=== PATIENT | female | born 1940 | race Caucasian/White ===

== ENCOUNTER 2017-07-29 17:41 | Inpatient (IN) | payer MEDICARE, OTHER ==
[~2017-07-29] VITALS: Ht 144.8 cm; Wt 49.0 kg
[~2017-07-29 17:41] MED LIST: ACET-1600 PO; ATOR40TA78 PO; FERR325T18 PO; FURO20TA3 PO; FURO40TA6 PO; GABA300C10 PO; HYDR-3240 PO; HYDR200T PO; LORA10TA3 PO; LOSA25TA2 PO; LOSA50TA6 PO; MECL-76 PO; NYST5000 PO; OMEP20TA62 PO; POTA20TA91 PO; POTA8CAP PO; TORS10TA4 PO; TRAM50TA2 PO
[2017-07-29] MEDS ORDERED: ASPIRIN 81 MG TABLET CHEW PO ONE (18:00)
[2017-07-29] MEDS ORDERED: ALBU8.5H8 INH (18:07)
[2017-07-29] MEDS ORDERED: ASPIRIN 81 MG TABLET CHEW ONE (18:20)
[2017-07-29 18:44] LABS: HEMOGLOBIN 10.7 g/dL (11.7-16.4); WHITE BLOOD COUNT 7.8 x10^3/uL (3.4-10)
[2017-07-29 18:55] LABS: BLOOD UREA NITROGEN 29 mg/dL (7-18)
[2017-07-29 19:05] LABS: IS PT STATUS REG ER OR PRE ER? YES
[2017-07-29] MEDS ORDERED: FUROSEMIDE 20 MG/2 ML IV ONE (21:30)
[2017-07-29] MEDS ORDERED: ONDANSETRON ODT 4 MG PO PRN (22:00)
[2017-07-29] MEDS ORDERED: TEMAZEPAM 15 MG CAPSULE PO PRN (22:00)
[2017-07-29] MEDS ORDERED: DOCUSATE 100 MG CAPSULE PO PRN (22:00)
[2017-07-29] MEDS: TEMPLATE NON-FORMULARY MED. (Albuterol Sulfate (Proair Hfa) 2 PUFF(S)) INH SCH (22:00)
[2017-07-29] MEDS ORDERED: FUROSEMIDE 20 MG/2 ML ONE (22:04)
[2017-07-29 23:19] VITALS: BP 144/87
[2017-07-29] MEDS: ATORVASTATIN 40 MG TABLET PO SCH (23:55)
[2017-07-29] MEDS: ACETAMINOPHEN 325 MG TABLET PO PRN (23:55)
[2017-07-29] MEDS: HEPARIN 5,000 UNITS/ML, 1ML SQ SCH (23:56)
[2017-07-30 00:10] VITALS: BP 126/76
[2017-07-30] MEDS: TEMPLATE NON-FORMULARY MED. (Albuterol Sulfate (Proair Hfa) 2 PUFF(S)) INH SCH ×4 (01:00→11:00)
[2017-07-30 01:24] LABS: IS PT STATUS REG ER OR PRE ER? NO
[2017-07-30 06:54] LABS: HEMATOCRIT 28.8 % (34.6-47.8); HEMOGLOBIN 9.7 g/dL (11.7-16.4); WHITE BLOOD COUNT 6.9 x10^3/uL (3.4-10)
[2017-07-30 07:06] VITALS: BP 130/72
[2017-07-30 07:06] LABS: BLOOD UREA NITROGEN 36 mg/dL (7-18)
[2017-07-30 07:14] LABS: IS PT STATUS REG ER OR PRE ER? NO
[2017-07-30] MEDS ORDERED: LOSARTAN 25MG TABLET PO SCH (09:00)
[2017-07-30] MEDS: HEPARIN 5,000 UNITS/ML, 1ML SQ SCH ×2 (09:10→16:25)
[2017-07-30] MEDS: LORATADINE 10 MG TABLET PO SCH (09:10)
[2017-07-30] MEDS: HYDROXYCHLOROQUINE 200 MG TABLET PO SCH (09:10)
[2017-07-30] MEDS: FUROSEMIDE 20 MG/2 ML IV SCH (09:10)
[2017-07-30] MEDS: FERROUS SULFATE 325 MG TABLET PO SCH ×2 (09:10→16:25)
[2017-07-30] MEDS ORDERED: ALBUTEROL SULFATE HOMEMEDPO PRN (13:00)
[2017-07-30 13:28] VITALS: BP 130/68
[2017-07-30 19:52] VITALS: BP 131/76
[2017-07-30] MEDS: ATORVASTATIN 40 MG TABLET PO SCH (22:41)
[2017-07-31 02:57] VITALS: BP 134/78
[2017-07-31] MEDS: HEPARIN 5,000 UNITS/ML, 1ML SQ SCH ×3 (06:00→22:00)
[2017-07-31 06:01] LABS: BLOOD UREA NITROGEN 37 mg/dL (7-18)
[2017-07-31 07:39] VITALS: BP 137/74
[2017-07-31] MEDS: HYDROXYCHLOROQUINE 200 MG TABLET PO SCH (08:29)
[2017-07-31] MEDS: FUROSEMIDE 20 MG/2 ML IV SCH (08:29)
[2017-07-31] MEDS: LORATADINE 10 MG TABLET PO SCH (08:30)
[2017-07-31] MEDS: FERROUS SULFATE 325 MG TABLET PO SCH ×2 (08:32→17:53)
[2017-07-31 15:18] VITALS: BP 143/75
[2017-07-31 18:43] VITALS: BP 138/81
[2017-07-31] MEDS: ATORVASTATIN 40 MG TABLET PO SCH (20:35)
[2017-08-01 02:45] VITALS: BP 114/71
[2017-08-01 07:53] VITALS: BP 118/63
[2017-08-01] MEDS: FUROSEMIDE 20 MG/2 ML IV SCH (08:43)
[2017-08-01] MEDS: HYDROXYCHLOROQUINE 200 MG TABLET PO SCH (08:43)
[2017-08-01] MEDS: FERROUS SULFATE 325 MG TABLET PO SCH ×2 (08:43→17:24)
[2017-08-01] MEDS: LORATADINE 10 MG TABLET PO SCH (08:43)
[2017-08-01] MEDS: HEPARIN 5,000 UNITS/ML, 1ML SQ SCH ×2 (08:44→17:00)
[2017-08-01] MEDS: ACETAMINOPHEN 325 MG TABLET PO PRN (09:10)
[2017-08-01 12:50] VITALS: BP 121/73
== END 2017-08-01 19:05 | disposition home or self-care (01) | DRG 306 ==
LOC: ED 20:01 → EDIP 21:17 → 5SO 22:40
PROVIDERS: ADMIT Family Medicine; ATTEND Family Medicine
DX: I08.3 Combined rheumatic disorders of mitral, aortic and tricuspid valves (principal); I50.33 Acute on chronic diastolic (congestive) heart failure; N17.9 Acute kidney failure, unspecified; I13.0 Hypertensive heart and chronic kidney disease with heart failure and stage 1 through stage 4 chronic kidney disease, or unspecified chronic kidney disease; N39.0 Urinary tract infection, site not specified; E11.21 Type 2 diabetes mellitus with diabetic nephropathy; I27.20 Pulmonary hypertension, unspecified; N18.3 Chronic kidney disease, stage 3 (moderate); E11.22 Type 2 diabetes mellitus with diabetic chronic kidney disease; M19.90 Unspecified osteoarthritis, unspecified site; E78.00 Pure hypercholesterolemia, unspecified; K21.9 Gastro-esophageal reflux disease without esophagitis; M06.9 Rheumatoid arthritis, unspecified; Z66 Do not resuscitate; D63.8 Anemia in other chronic diseases classified elsewhere; G89.29 Other chronic pain; Z98.42 Cataract extraction status, left eye; Z86.14 Personal history of Methicillin resistant Staphylococcus aureus infection; Z87.891 Personal history of nicotine dependence; Z98.41 Cataract extraction status, right eye; Z79.84 Long term (current) use of oral hypoglycemic drugs; Z83.3 Family history of diabetes mellitus; E78.5 Hyperlipidemia, unspecified
CPT/HCPCS: 36415; 71010; 80048; 82040; 83880; 84484; 85025; 85379; 93005; 93306; 96374; J1644; Q0162; J1940